=== PATIENT | male | born 1940 | race Caucasian/White ===

== ENCOUNTER 2021-08-23 18:07 | Emergency (ER) | payer MEDICARE ==
[~2021-08-23] VITALS: Ht 185.4 cm; Wt 56.7 kg
[2021-08-23] MEDS ORDERED: CO Q-1050 MG PO (18:22)
[2021-08-23] MEDS ORDERED: CENTRUM SILVER1 EAC3 PO (18:22)
[2021-08-23] MEDS ORDERED: DILTIAZEM HCL30 MG PO (18:22)
[2021-08-23] MEDS ORDERED: CLOPIDOGREL75 MG PO (18:23)
[2021-08-23] MEDS ORDERED: ARTHRITIS PAIN100 GM TD (18:23)
[2021-08-23] MEDS ORDERED: ADULT ASPIRIN R81 MG PO (18:24)
[2021-08-23] MEDS ORDERED: LISINOPRIL10 MG PO (18:24)
[2021-08-23] MEDS ORDERED: LEVOFLOXACIN750 MG PO (23:08)
[2021-08-23] MEDS ORDERED: ELIQUIS5 MG PO (23:08)
[2021-08-23] MEDS ORDERED: HYDROCODON-ACE1 EA10 PO (23:09)
--- NOTE | 2021-08-24 08:08 | EKG ---
[facility] [address] [facility] [place], [place] [address] Signed Sinus rhythm with occasional and consecutive premature ventricular complexes Left axis deviation Low voltage QRS Inferior infarct , age undetermined Abnormal ECG No previous ECGs available Confirmed by NOEMY JEAN MD ([id number]) on 08/24/2021 8:08:06 AM Electronically Signed By: NOEMY JEAN MD 08/24/21807 PATIENT NAME: TOMA ALBRECHT Electrocardiogram DATE OF : 38 PHYSICIAN: NOEMY JEAN MD REPORT #: [id number] REPORT IS CONFIDENTIAL AND NOT TO BE RELEASED WITHOUT AUTHORIZATION
== END 2021-08-24 00:15 | disposition home or self-care (01) ==
LOC: ED 18:07
DX: I26.99 Other pulmonary embolism without acute cor pulmonale (principal); J18.9 Pneumonia, unspecified organism; J90 Pleural effusion, not elsewhere classified; I10 Essential (primary) hypertension; I25.10 Atherosclerotic heart disease of native coronary artery without angina pectoris; I25.2 Old myocardial infarction; Z91.038 Other insect allergy status; Z88.0 Allergy status to penicillin; Z79.899 Other long term (current) drug therapy; Z79.82 Long term (current) use of aspirin; Z79.02 Long term (current) use of antithrombotics/antiplatelets
CPT/HCPCS: 71045; 71260; 80053; 80500; 83735; 83880; 84484; 85025; 85379; 93005; 93010; 99284-25; J0696; J1170; J2405; Q9967

== ENCOUNTER 2021-12-17 14:56 | Observation (INO) | payer MEDICARE ==
[~2021-12-17] VITALS: Ht 185.4 cm; Wt 57.0 kg
[~2021-12-17 14:56] MED LIST: ADULT ASPIRIN R81 MG PO; ARTHRITIS PAIN100 GM TD; CENTRUM SILVER1 EAC3 PO; CLOPIDOGREL75 MG PO; CO Q-1050 MG PO; DILTIAZEM HCL30 MG PO; ELIQUIS5 MG PO; HYDROCODON-ACE1 EA10 PO; LEVOFLOXACIN750 MG PO; LISINOPRIL10 MG PO
[2021-12-17] MEDS ORDERED: K-TAB ER20 MEQ PO (15:19)
[2021-12-17] MEDS ORDERED: AUVI-Q0.1 MG/0.1 IJ (15:19)
--- NOTE | 2021-12-17 17:28 | EKG ---
[facility] [address] 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
== END 2021-12-18 15:50 ==
LOC: ED 14:56 → MS 14:58
PROVIDERS: ADMIT Internal Medicine; ATTEND Internal Medicine
DX: A41.9 Sepsis, unspecified organism (principal); R65.20 Severe sepsis without septic shock; I10 Essential (primary) hypertension; E78.5 Hyperlipidemia, unspecified; I25.2 Old myocardial infarction; Z66 Do not resuscitate; Z51.5 Encounter for palliative care; Z88.0 Allergy status to penicillin; Z86.711 Personal history of pulmonary embolism; Z91.030 Bee allergy status
CPT/HCPCS: 36415; 80053; 81001; 85025; 85610; 93005; 93010; C9803; G0378; J7030; U0003